=== PATIENT | female | born 1960 | race Caucasian/White ===

== ENCOUNTER 2016-12-11 16:38 | Emergency (ER) | payer MEDICAID ==
[~2016-12-11] VITALS: Ht 154.9 cm; Wt 41.2 kg
[2016-12-11 16:44] VITALS: BP 125/82
[2016-12-11] MEDS ORDERED: LIDOCAINE 1%, 20ML ONE (17:15)
[2016-12-11] MEDS ORDERED: HYDROcodone/APAP 5/325 TABLET ONE (17:15)
[2016-12-11] MEDS ORDERED: KETOROLAC 30 MG/1 ML IM ONE (17:30)
[2016-12-11] MEDS ORDERED: HYDROcodone/APAP 5/325 TABLET PO ONE (17:30)
[2016-12-11] MEDS ORDERED: SODIUM CHLORIDE FLUSH 10ML SYR IVF ONE (17:30)
[2016-12-11] MEDS ORDERED: LIDOCAINE 1%, 20ML SQ ONE (17:30)
== END 2016-12-11 19:08 | disposition home or self-care (01) ==
LOC: ED 19:00
DX: L03.211 Cellulitis of face (principal); F17.210 Nicotine dependence, cigarettes, uncomplicated; F12.10 Cannabis abuse, uncomplicated
CPT/HCPCS: 70486; 99283; 99284